=== PATIENT | male | born 1960 | race African-American/Black ===

== ENCOUNTER 2025-05-02 09:14 | Outpatient (CLI) | payer OTHER ==
[2025-05-02 10:51] LABS: #Basophils 0.03 10x3/uL (0.0-0.2); #Eosinophils 0.11 10x3/uL (0.0-0.7); #Monocytes 0.77 10x3/uL (0.11-0.59); #Neutrophils 4.86 10x3/uL (1.40-6.50); %Basophils 0.3 % (0.0-1.0); %Eosinophils 1.2 % (0.0-10.0); %Lymphocytes 38.3 % (21.0-51.0); %Monocytes 8.2 % (0.0-10.0); %Neutrophils 51.8 % (42.0-75.0); Hematocrit 40.7 % (42.0-52.0); Hemoglobin 12.2 g/dL (14.0-18.0); Mean Corpuscular Hemoglobin 22.3 pg (27.0-31.0); Mean Corpuscular Volume 74.5 fL (78.0-98.0); Platelet Count 297 10x3/uL (130-400); Red Blood Cell (RBC) Count 5.46 mill/uL (4.70-6.10); White Blood Cell (WBC) Count 9.38 10x3/uL (4.8-10.8)
[2025-05-02 10:56] LABS: Bacteria/HPF None Seen HPF (None Seen); Glucose, Urine (Dipstick) Normal (Negative); Leukocyte 75 Leu/uL (Negative); Protein, Urine (Dipstick) Negative (Neg-Trace); RBC/HPF 0-3 HPF (0-3); Specific Gravity, Urine 1.020 (1.002-1.036)
[2025-05-02 11:03] LABS: Anion Gap 16 mmol/L (10-20); BUN (Urea Nitrogen) 25 mg/dL (8.4-25.7); Calc. Creatinine Clearance 0 mL/min (70-130); Calcium 9.4 mg/dL (7.8-10.44); Carbon Dioxide 23 mmol/L (23-31); Chloride 104 mmol/L (98-107); Glucose 127 mg/dL (80-115); Potassium 4.6 mmol/L (3.5-5.1); Sodium 138 mmol/L (136-145)
[2025-05-02 11:12] LABS: Anisocytosis SLIGHT = 6-15 cells HPF (0-5); Burr Cells SLIGHT = 2-5 cells HPF (0-1); Microcytosis SLIGHT = 6-15 cells HPF (0-5); Platelet Adequacy Comment Platelets Normal; Poikilocytosis SLIGHT = 6-15 cells HPF (0-5); Polychromasia SLIGHT = 2-3 cells HPF (0-2); Schistocytes SLIGHT = 2-5 cells HPF (0-1)
[2025-05-02 11:13] LABS: INR-International Normal Ratio 1.1; PTT 26.9 sec (22.9-36.1); Prothrombin Time 14.3 sec (12.0-14.7)
== END 2025-05-02 09:15 | disposition home or self-care (01) ==
LOC: LABBT 09:14
PROVIDERS: ATTEND Urology
DX: Z01.818 Encounter for other preprocedural examination (principal); N40.1 Benign prostatic hyperplasia with lower urinary tract symptoms
CPT/HCPCS: 80048; 81001; 85025; 85610; 85730; 87086; 93005; 93010

== ENCOUNTER 2025-05-17 06:31 | Day surgery (SDC) | payer OTHER ==
[2025-05-02 09:21] VITALS: BMI 31.4
[2025-05-17] MEDS ORDERED: fentaNYL PF 100 MCG/2 ML SYRINGE ONE (06:55)
[2025-05-17] MEDS ORDERED: Lidocaine 1% PF 5 ML VIAL ONE (06:57)
[2025-05-17] MEDS ORDERED: LevoFLOXacin D5W 500 mg (100 mL) BAG ONE (07:18)
[2025-05-17] MEDS ORDERED: Rocuronium Bromide 10 MG/ML (10ML VIAL) ONE (09:42)
[2025-05-17] MEDS ORDERED: Ondansetron PF 4 MG/2 ML Vial ONE (09:42)
[2025-05-17] MEDS ORDERED: PROPOFOL 200 MG/20 ML VIAL ONE (09:42)
[2025-05-17] MEDS ORDERED: SUGAMMADEX SODIUM 200 MG/2 ML VIAL ONE (10:45)
[2025-05-17] MEDS ORDERED: Albuterol 2.5 MG (0.5 mL) NEB ONE (11:01)
[2025-05-17] MEDS ORDERED: Sodium Chloride For Inhalation 0.9% 3 ML NEB ONE (11:02)
[2025-05-17] MEDS ORDERED: Oxybutynin 5 MG TAB ONE (11:36)
== END 2025-05-17 12:45 | disposition home or self-care (01) ==
LOC: SDC 06:31
PROVIDERS: ATTEND Urology
PROC: 0V507ZZ Destruction of Prostate, Via Natural or Artificial Opening (ICD-10-PCS; principal; 2025-05-17)
DX: N40.1 Benign prostatic hyperplasia with lower urinary tract symptoms (principal); N13.8 Other obstructive and reflux uropathy; N52.9 Male erectile dysfunction, unspecified; N28.1 Cyst of kidney, acquired; I12.9 Hypertensive chronic kidney disease with stage 1 through stage 4 chronic kidney disease, or unspecified chronic kidney disease; E11.22 Type 2 diabetes mellitus with diabetic chronic kidney disease; N18.31 Chronic kidney disease, stage 3a; E29.1 Testicular hypofunction; Z21 Asymptomatic human immunodeficiency virus [HIV] infection status; Z88.8 Allergy status to other drugs, medicaments and biological substances; Z79.85 Long-term (current) use of injectable non-insulin antidiabetic drugs; Z79.899 Other long term (current) drug therapy
CPT/HCPCS: A4333; J1956; J2405; J2704; J3010; J7611